=== PATIENT | male | born 1985 | race African-American/Black ===

== ENCOUNTER 2016-03-30 19:07 | Emergency (ER) | payer SELFPAY ==
--- NOTE | 2016-03-30 20:13 | ER Document Report ---
ED Medical Screen (RME) - General Stated Complaint: POSSIBLE INSECT BITE ON RIGHT ARM Notes: patient is a 30 year old male p/w abscess on right antecubital fossa with swelling and head. pt used IV rajesh 2 weeks ago. swelling started 2 days ago, with head today. no fevers but admits to chills. I have greeted and performed a rapid initial assessment of this patient. A comprehensive ED assessment and evaluation of the patient, analysis of test results and completion of the medical decision making process will be conducted by additional ED providers. TRAVEL OUTSIDE OF THE [place] IN LAST 30 DAYS: No - Related Data Allergies/Adverse Reactions: hydrocodone Adverse Reaction (Verified 03/30/16 20:07) Past Medical History Pulmonary Medical History: Reports: Hx Asthma, Hx Pneumonia - Immunizations Immunizations up to date: Yes Hx Diphtheria, Pertussis, Tetanus Vaccination: Yes Physical Exam - Vital signs Vitals: Temp Pulse Resp BP Pulse Ox 98.7 F 93 16 147/90 H 99 03/30/16 19:57 03/30/16 19:57 03/30/16 19:57 03/30/16 19:57 03/30/16 19:57 Course - Vital Signs Vital signs: Temp Pulse Resp BP Pulse Ox 98.7 F 93 16 147/90 H 99 03/30/16 19:57 03/30/16 19:57 03/30/16 19:57 03/30/16 19:57 03/30/16 19:57
[2016-03-30] MEDS ORDERED: OXYCODONE-ACETAMINOPHEN 5-325 MG TABLET PO ONE ×2 (20:14→23:19)
[2016-03-30] MEDS ORDERED: LIDOCAINE 1% INJ-PF (10 MG/ML) 30 ML SDV ONE (23:04)
[2016-03-30] MEDS ORDERED: CEPHALEXIN 500 MG CAPSULE PO ONE (23:19)
[2016-03-30] MEDS ORDERED: SULFAMETHOXAZOLE/TRIMETHOPRIM 800-160 MG TABLET PO ONE (23:19)
--- NOTE | 2016-03-30 23:23 | ER Document Report ---
ED General - General Chief Complaint: Abscess Stated Complaint: ABSCESS Notes: Patient is a 30-year-old male who presents with 2 days of progressively worsening redness, swelling and pain of his right upper extremity. States that somebody [facility] him with "[facility]" [facility] a week ago and several days later he began to notice some redness to the area. It has now progressed to a large abscess with associated cellulitis which patient describes as a severely painful , constant, throbbing pain. Nothing improves or worsens the pain. He denies any history of similar symptoms in the past. He denies any constitutional symptoms. He has not spoken with his primary care physician regarding today's concerns. TRAVEL OUTSIDE OF THE [place] IN LAST 30 DAYS: No - Related Data Allergies/Adverse Reactions: hydrocodone Adverse Reaction (Verified 03/30/16 20:07) Past Medical History - General Information source: Patient - Social History Smoking Status: Current Every Day Smoker Chew tobacco use (# tins/day): No Frequency of alcohol use: None Drug Abuse: Other Family History: Reviewed & Not Pertinent Patient has suicidal ideation: No Patient has homicidal ideation: No Pulmonary Medical History: Reports: Hx Asthma, Hx Pneumonia Renal/ Medical History: Denies: Hx Peritoneal Dialysis - Immunizations Immunizations up to date: Yes Hx Diphtheria, Pertussis, Tetanus Vaccination: Yes Review of Systems - Review of Systems Notes: Constitutional: Negative for fever. HENT: Negative for sore throat. Eyes: Negative for visual changes. Cardiovascular: Negative for chest pain. Respiratory: Negative for shortness of breath. Gastrointestinal: Negative for abdominal pain, vomiting or diarrhea. Genitourinary: Negative for dysuria. Musculoskeletal: Negative for back pain. Skin: Positive for an abscess with associated cellulitis Neurological: Negative for headaches, weakness or numbness. 10 point ROS negative except as marked above and in HPI. Physical Exam - Vital signs Vitals: Temp Pulse Resp BP Pulse Ox 98.7 F 93 16 147/90 H 99 03/30/16 19:57 03/30/16 19:57 03/30/16 19:57 03/30/16 19:57 03/30/16 19:57 Interpretation: Hypertensive Notes: PHYSICAL EXAMINATION: GENERAL: Well-appearing, well-nourished and in no acute distress. HEAD: Atraumatic, normocephalic. EYES: Pupils equal round and reactive to light, extraocular movements intact, sclera anicteric, conjunctiva are normal. ENT: nares patent, oropharynx clear without exudates. Moist mucous membranes. NECK: Normal range of motion, supple without lymphadenopathy LUNGS: Breath sounds clear to auscultation bilaterally and equal. No wheezes rales or rhonchi. HEART: Regular rate and rhythm without murmurs ABDOMEN: Soft, nontender, normoactive bowel sounds. No guarding, no rebound. No masses appreciated. EXTREMITIES: Normal range of motion, no pitting or edema. No cyanosis. NEUROLOGICAL: No focal neurological deficits. Moves all extremities spontaneously and on command. PSYCH: Normal mood, normal affect. SKIN: Warm, Dry, normal turgor, there is a 4 x 3 cm abscess on the radial aspect of the an acute fossa with spreading erythema to the mid forearm into the distal one third of the bicep Course - Re-evaluation Re-evalutation: 03/30/16 23:20 Patient presents with a large abscess on the right forearm over the antecubital fossa. Patient has an associated cellulitis extending over the forearm and to the distal one third of the biceps. This was incised and drained with a cruciate incision secondary to the size of the abscess. Approximately 30 mL of purulent drainage was expressed. Patient does not meet sepsis criteria and is overall very well in appearance. He'll be started on both Bactrim and Keflex. At this time will discharge with return precautions and follow-up recommendations. Verbal discharge instructions given a the bedside and opportunity for questions given. Medication warnings reviewed. Patient is in agreement with this plan and has verbalized understanding of return precautions and the need for primary care follow-up in the next 24 hours for a wound recheck. - Vital Signs Vital signs: Temp Pulse Resp BP Pulse Ox 101.1 F H 93 18 146/94 H 99 03/30/16 23:45 03/30/16 23:45 03/30/16 23:45 03/30/16 23:45 03/30/16 23:45 Procedures - Incision and Drainage Right Arm Type: Complex Anesthetic type: 1% Lidocaine mL's of anesthetic: 5 Blade size: 11 I&D procedure: Betadine prep applied Incision Method: Incision made by scalpel Amount/type of drainage: 30 cc purulent drainage Notes: 03/31/16 02:47 This was a complex incision and drainage requiring bedside ultrasound assistance with extensions of the incision into a full cruciate incision secondary to the degree of purulent expression in the size of the abscess. The abscess was irrigated after extensive probing to break up loculations. An additional ultrasound was completed immediately after no further purulent material was able to be expressed did not demonstrate any remaining fluid collections. The abscess was then irrigated with fluid and then packed with iodoform gauze. Full procedure time: 30 minutes. Discharge - Discharge Clinical Impression: Abscess of right forearm, Cellulitis of arm, right Condition: Good Disposition: HOME, SELF-CARE Additional Instructions: You were seen for an abscess that required drainage. Please clean this area with soap and water twice daily and apply a topical antibiotic. Dress the area after each cleaning. You need to take the antibiotics as prescribed. Do not stop even if the rash goes away until you have completed all the antibiotics. The area of redness was traced out here in the emergency department with a marking pen. You need to return to emergency department if the redness spreads outside of this area by more than 2 cm in any direction. You should also return if you develop fevers with temperature greater than 101, persistent vomiting, worsening pain, or have any other symptoms that are concerning to you. Please return to the emergency department and urgent care or your primary care doctor in the next 24-48 hours for recheck of your wound and removal of packing Prescriptions: Cephalexin Monohydrate [Keflex 500 mg Capsule] 500 mg PO QID #28 capsule Oxycodone HCl/Acetaminophen [Percocet 5-325 mg Tablet] 1 - 2 tab PO Q4H PRN #12 tablet PRN Reason: Sulfamethoxazole/Trimethoprim [Bactrim Ds Tablet] 2 tab PO BID #28 tablet
[2016-03-31] VITALS: BP 146/94
== END 2016-03-30 23:45 | disposition home or self-care (01) ==
LOC: ER 19:07
PROC: 0H9DXZZ Drainage of Right Lower Arm Skin, External Approach (ICD-10-PCS; principal; 2016-03-30)
DX: L02.413 Cutaneous abscess of right upper limb (principal); L03.113 Cellulitis of right upper limb; J45.909 Unspecified asthma, uncomplicated; F17.200 Nicotine dependence, unspecified, uncomplicated
CPT/HCPCS: 99283; 10061; J3490

== ENCOUNTER 2016-05-09 23:34 | Emergency (ER) | payer SELFPAY ==
[2016-05-10] MEDS ORDERED: IPRATROPIUM/ALBUTEROL 0.5-2.5 MG/3 ML AMPUL NEB ONE (03:53)
[2016-05-10] MEDS ORDERED: PREDNISONE 20 MG TABLET PO ONE (07:00)
[2016-05-10] MEDS ORDERED: ALBUTEROL SULFATE HFA (90 MCG/PUFF) 8 GM MDI (1 MDI/ER DISP) IH ONE (07:00)
--- NOTE | 2016-05-10 07:00 | ER Document Report ---
ED Respiratory Problem - General Mode of Arrival: Ambulatory Information source: Patient TRAVEL OUTSIDE OF THE [place] IN LAST 30 DAYS: No - HPI Patient complains to provider of: Asthma Onset: Last week Duration: Worse/persistent Context: Hx asthma, Smoker - 1/2 pack per day Cough: Productive Sputum amount: Moderate Sputum color: Brown Sputum consistency: Thick At home treatment: Bronchodilators - Inhaler recently ran out Associated symptoms: Chest pain/discomfort - Secondary to cough, Cough, Wheezing Similar symptoms previously: Yes - history of asthma <MARLENA CUI - Last Filed: 05/10/16 07:23> <ALBAN JOEL - Last Filed: 05/10/16 07:47> - General Chief Complaint: Breathing Difficulty Stated Complaint: CHEST PAIN, DIFFICULTY BREATHING Notes: Patient is a 30-year-old male, with history of asthma and smoking, presenting to the emergency department concerned of difficulty breathing with wheezing onset approximately 1-1/2 weeks ago. Patient states that he has had a cough with very dark sputum. Patient used to have an inhaler of albuterol, but has now run out. 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 (MARLENA CUI) - Related Data Allergies/Adverse Reactions: hydrocodone Adverse Reaction (Verified 05/10/16 02:11) Past Medical History - General Information source: Patient - Social History Smoking Status: Current Every Day Smoker Cigarette use (# per day): Yes - 10 Frequency of alcohol use: Rare Drug Abuse: None Family History: Reviewed & Not Pertinent Patient has suicidal ideation: No Patient has homicidal ideation: No Pulmonary Medical History: Reports: Hx Asthma, Hx Pneumonia Renal/ Medical History: Denies: Hx Peritoneal Dialysis - Immunizations Immunizations up to date: Yes Hx Diphtheria, Pertussis, Tetanus Vaccination: Yes <MARLENA CUI - Last Filed: 05/10/16 07:23> Review of Systems - Review of Systems Constitutional: No symptoms reported EENT: No symptoms reported Cardiovascular: No symptoms reported Respiratory: See HPI, Cough, Short of breath, Sputum, Wheezing Gastrointestinal: No symptoms reported Genitourinary: No symptoms reported Male Genitourinary: No symptoms reported Musculoskeletal: No symptoms reported Skin: No symptoms reported Hematologic/Lymphatic: No symptoms reported Neurological/Psychological: No symptoms reported -: Yes All other systems reviewed and negative <MARLENA CUI - Last Filed: 05/10/16 07:23> Physical Exam - General General appearance: Appears well, Alert - HEENT Head: Normocephalic, Atraumatic Eyes: Normal Pupils: PERRL - Respiratory Respiratory status: No respiratory distress Chest status: Nontender Breath sounds: Productive cough, Rhonchi - With cough, Wheezing - Inspiratory and expiratory Chest palpation: Normal - Cardiovascular Rhythm: Regular Heart sounds: Normal auscultation Murmur: No - Abdominal Inspection: Normal Tenderness: Nontender - Back Back: Normal, Nontender - Extremities General upper extremity: Normal inspection, Nontender General lower extremity: Normal inspection, Nontender, Normal weight bearing - Neurological Neuro grossly intact: Yes Cognition: Normal Dennys Coma Scale Eye Opening: Spontaneous Dennys Coma Scale Verbal: Oriented Dennys Coma Scale Motor: Obeys Commands Henderson Coma Scale Total: 15 Speech: Normal - Psychological Associated symptoms: Normal affect, Normal mood - Skin Skin Temperature: Warm Skin Moisture: Dry Skin Color: Normal <MARLENA CUI - Last Filed: 05/10/16 07:23> Course - EKG Interpretation by Nh EKG shows normal: Sinus rhythm, [place], Intervals, QRS Complexes, ST-T Waves Rate: Tachycardia - 103 P Waves: LAE <ALBAN JOEL - Last Filed: 05/10/16 07:47> - Vital Signs Vital signs: Temp Pulse Resp BP Pulse Ox 98.8 F 91 16 126/73 H 92 05/10/16 07:13 05/10/16 07:13 05/10/16 07:13 05/10/16 07:13 05/10/16 07:13 Discharge <MARLENA CUI - Last Filed: 05/10/16 07:23> <ALBAN JOEL - Last Filed: 05/10/16 07:47> - Discharge Clinical Impression: Asthmatic bronchitis Qualifiers: Asthma severity: unspecified severity Asthma complication type: with acute exacerbation Qualified Code(s): J45.901 - Unspecified asthma with (acute) exacerbation Condition: Stable Disposition: HOME, SELF-CARE Additional Instructions: Bronchitis with Bronchospasm (Wheezing): You have bronchitis with bronchospasm (wheezing). Sometimes people develop wheezing with a chest cold. This occurs either because of an underlying tendency toward asthma or because the virus itself irritates the bronchial tubes. This irritation causes cough, shortness of breath, and wheezing. Emergency treatment of bronchospasm may include adrenaline shots or bronchodilator aerosol. You may feel lightheaded and have a rapid pulse for an hour or two. Rest and get plenty of fluids. At home, we'll treat you with a bronchodilator inhaler. Corticosteroids may be required for some patients. Until you recover, avoid chemical fumes, dusts, pollens, and exercising in very cold or dry air. If you smoke, stop now! Most cases of bronchitis get better without antibiotics. We prescribe antibiotics when we believe bacteria are damaging your airways, or if there's high risk the bronchitis will worsen into pneumonia. Increase your fluid intake. A cool mist humidifier may make your lungs more comfortable. An expectorant (cough medicine that loosens phlegm) can help. Repeated episodes of bronchitis and bronchospasm may result in lung damage -- for example, chronic bronchitis, recurrent pneumonias, or emphysema. If you develop a fever, increased wheezing, chest pain, or severe shortness of breath, you should contact the doctor immediately. START THE PREDNISONE AND THE ZITHROMAX TOMORROW. USE THE INHALER 2 PUFFS EVERY 4 HOURS FOR WHEEZING. DRINK PLENTY OF FLUIDS. REST. STOP SMOKING. FOLLOW UP WITH A LOCAL MEDICAL DOCTOR IF NOT IMPROVING. Prescriptions: Albuterol Sulfate [Proair HFA] 1 - 2 puff IH Q4 PRN #1 inhaler PRN Reason: Azithromycin [Zithromax 250 mg Tablet] 250 mg PO DAILY #4 tablet Prednisone [Deltasone 10 mg Tablet] 10 mg PO ASDIR PRN #21 tablet PRN Reason: Scribe Attestation: 05/10/16 07:04 I personally performed the services described in the documentation, reviewed and edited the documentation which was dictated to the scribe in my presence, and it accurately records my words and actions. (ALBAN JOEL) Scribe Documentation - Scribe Written by Celestino:: Marlena Cui 05/10/2016 0721 acting as scribe for :: Bret <MARLENA CUI - Last Filed: 05/10/16 07:23>
[2016-05-10] MEDS ORDERED: AZITHROMYCIN 250 MG TABLET PO ONE (07:02)
[2016-05-10 07:16] VITALS: BP 126/73
--- NOTE | 2016-05-10 08:10 | EKG REPORT ---
SEVERITY:- BORDERLINE ECG - SINUS TACHYCARDIA PROBABLE LEFT ATRIAL ABNORMALITY : Confirmed by: Goyo Christopher MD 10-May-2016 08:08:43
== END 2016-05-10 07:18 | disposition home or self-care (01) ==
LOC: ER 23:34
DX: J45.901 Unspecified asthma with (acute) exacerbation (principal); R05 Cough; R07.9 Chest pain, unspecified; R06.02 Shortness of breath; R00.0 Tachycardia, unspecified; F17.210 Nicotine dependence, cigarettes, uncomplicated; Z87.01 Personal history of pneumonia (recurrent)
CPT/HCPCS: 93005; 94640; 99285; 71020; 93010; J7512; J3490; J7620

== ENCOUNTER 2016-08-01 21:18 | Emergency (ER) | payer SELFPAY ==
[2016-08-01 21:25] VITALS: BP 141/86
[2016-08-01] MEDS ORDERED: OXYCODONE-ACETAMINOPHEN 5-325 MG TABLET PO ONE (23:34)
[2016-08-01] MEDS ORDERED: CLINDAMYCIN HCL 150 MG CAPSULE PO ONE (23:34)
[2016-08-01] MEDS ORDERED: LIDOCAINE 1% INJ-PF (10 MG/ML) 30 ML SDV INJ ONE (23:34)
--- NOTE | 2016-08-01 23:38 | ER Document Report ---
ED General - General Chief Complaint: Insect Bite Stated Complaint: POSSIBLE INSECT BITE RIGHT ARM Time Seen by Provider: 08/01/16 22:47 Notes: Patient is a 30-year-old male presents with complaint of a abscess to the right antecubital area. He says he is bitten by something such as a bug or spider 3 days ago he did not see what might have bit him. He has no fevers. Denies IV drug abuse. No other complaints at this time. TRAVEL OUTSIDE OF THE [place] IN LAST 30 DAYS: No - Related Data Allergies/Adverse Reactions: hydrocodone Adverse Reaction (Verified 05/10/16 02:11) Past Medical History - Social History Smoking Status: Unknown if Ever Smoked Frequency of alcohol use: None Drug Abuse: None Family History: Reviewed & Not Pertinent Patient has suicidal ideation: No Patient has homicidal ideation: No Pulmonary Medical History: Reports: Hx Asthma, Hx Pneumonia Renal/ Medical History: Denies: Hx Peritoneal Dialysis Surgical Hx: Negative - Immunizations Immunizations up to date: Yes Hx Diphtheria, Pertussis, Tetanus Vaccination: Yes Review of Systems - Review of Systems Notes: My Normal Review Basic REVIEW OF SYSTEMS: CONSTITUTIONAL : Denies fever, chills, or sweats. Denies recent illness. MUSCULOSKELETAL: Denies neck or back pain or joint pain or swelling. SKIN: Abscess Right antecubital area. ALL OTHER SYSTEMS REVIEWED AND NEGATIVE. Physical Exam - Vital signs Vitals: Temp Pulse Resp BP Pulse Ox 98.4 F 72 20 141/86 H 99 08/01/16 21:24 08/01/16 21:24 08/01/16 21:24 08/01/16 21:24 08/01/16 21:24 - Notes Notes: General Appearance: Well nourished, alert, cooperative, no acute distress, no obvious discomfort. Vitals: reviewed, See vital signs table. Eyes: PERRL, EOMI, Conjuctiva clear Mouth: No decreasd moisture Lungs: No wheezing, No rales, No rhonci, No accessory muscle use, good air exchange bilaterally. Heart: Normal rate, Regular rythm, No murmur, no rub Abdomen: Normal BS, soft, No rigidity, No abdominal tenderness, No guarding, no rebound, no abdominal masses, no organomegaly Extremities: strength 5/5 in all extremities, good pulses in all extremities, 2 cm area of fluctuance in the right antecubital area. Localized erythema., no edema. Skin: warm, dry, appropriate color, no rash Neuro: speech clear, oriented x 3, normal affect, responds appropriately to questions. Course - Vital Signs Vital signs: Temp Pulse Resp BP Pulse Ox 98.4 F 72 20 141/86 H 99 08/01/16 21:24 08/01/16 21:24 08/01/16 21:24 08/01/16 21:24 08/01/16 21:24 - Transfer of Care Notes: 08/02/16 01:40 To the patient's room to incise the small abscess. Patient was not there. Nursing staff informed me that he got in an argument with his girlfriend and then left. I went back several times over the course of the next 30 minutes and he still was not there. Patient never returned and apparently has eloped after the argument with his girlfriend. Dictation of this chart was performed using voice recognition software; therefore, there may be some unintended grammatical errors.
== END 2016-08-02 01:00 | disposition left against medical advice (07) ==
LOC: ER 21:18
DX: L02.413 Cutaneous abscess of right upper limb (principal); S40.861A Insect bite (nonvenomous) of right upper arm, initial encounter; W57.XXXA Bitten or stung by nonvenomous insect and other nonvenomous arthropods, initial encounter
CPT/HCPCS: 99281; J3490

== ENCOUNTER 2016-08-02 04:17 | Emergency (ER) | payer SELFPAY ==
[2016-08-02] MEDS ORDERED: LIDOCAINE 1% INJ-PF (10 MG/ML) 30 ML SDV INJ ONE (04:51)
--- NOTE | 2016-08-02 04:57 | ER Document Report ---
ED General - General Chief Complaint: Insect Bite Stated Complaint: POSSIBLE INSECT BITE Time Seen by Provider: 08/02/16 04:49 Notes: Is a 30-year-old male that fell earlier today. He has an abscess in the right antecubital area. Patient eloped before I could incise abscess. Patient is now back. His abscesses little bit larger in size. Patient will be early because his girlfriend came to his room and started yelling and screaming and he wants to get her out of the ER because of the disturbance she was making. Patient has no history of IV drug abuse. He has no track coughlin on his arms. He has no recent fevers. No other complaints at this time. Patient did receive clindamycin when he was here a few hours ago. TRAVEL OUTSIDE OF THE [place] IN LAST 30 DAYS: No - Related Data Allergies/Adverse Reactions: hydrocodone Adverse Reaction (Verified 05/10/16 02:11) Past Medical History - Social History Smoking Status: Never Smoker Frequency of alcohol use: None Drug Abuse: None Family History: Reviewed & Not Pertinent Patient has suicidal ideation: No Patient has homicidal ideation: No Pulmonary Medical History: Reports: Hx Asthma, Hx Pneumonia Renal/ Medical History: Denies: Hx Peritoneal Dialysis - Immunizations Immunizations up to date: Yes Hx Diphtheria, Pertussis, Tetanus Vaccination: Yes Review of Systems - Review of Systems Notes: My Normal Review Basic REVIEW OF SYSTEMS: CONSTITUTIONAL : Denies fever, chills, or sweats. Denies recent illness. MUSCULOSKELETAL: Abscess to right antecubital area. SKIN: Denies rash or skin lesions. NEUROLOGICAL: Denies altered mental status. ALL OTHER SYSTEMS REVIEWED AND NEGATIVE. Physical Exam - Vital signs Vitals: Temp Pulse Resp BP Pulse Ox 98.0 F 93 16 143/91 H 96 08/02/16 04:22 08/02/16 04:22 08/02/16 04:22 08/02/16 04:22 08/02/16 04:22 - Notes Notes: General Appearance: Well nourished, alert, cooperative, no acute distress, mild obvious discomfort. well appearing Vitals: reviewed, See vital signs table. Extremities: strength 5/5 in all extremities, good pulses in all extremities, 3cm area of fluctuance in right antecubital fossa with localized erythema., no edema. Skin: warm, dry, appropriate color, no rash Neuro: speech clear, oriented x 3, normal affect, responds appropriately to questions. Course - Vital Signs Vital signs: Temp Pulse Resp BP Pulse Ox 98.0 F 93 16 143/91 H 96 08/02/16 04:22 08/02/16 04:22 08/02/16 04:22 08/02/16 04:22 08/02/16 04:22 - Transfer of Care Notes: 08/02/16 05:33 The abscess was incised and drained. Patient tolerated procedure well. Patient will be placed on clindamycin. He is encouraged to return to the ER immediately if he has spreading of redness, swelling, fevers, or if he feels unwell. Patient agrees with plan and will be discharged home. Procedures - Incision and Drainage right antecubital area Type: Simple Blade size: 11 I&D procedure: Chlorprep applied Incision Method: Incision made by scalpel Amount/type of drainage: 3mls of purulent drainage Discharge - Discharge Clinical Impression: Abscess Condition: Good Disposition: HOME, SELF-CARE Additional Instructions: ABSCESS: You have an abscess (boil). This a pus-forming infection, usually due to staph. Some boils may be left to drain on their own, but most require lancing. From the time the tender lump first appears, it may be three or four days before the abscess is ready to sherin. Local heat and rest help at this stage of treatment. An antibiotic may prevent spread of the infection. Once the abscess is opened, packing may be placed into it. This is done so pus is not sealed inside by premature closure of the cavity. The packing will be removed at your follow-up visit or you may be advised to remove it yourself at home. Sometimes this packing must be replaced a few times during healing. The wound will heal with surprisingly little scar. Depending on the size and location of an abscess, healing can take one to four weeks. You may shower and wash the area around the incision site two or three times a day. Antibiotics may be prescribed, but are usually not necessary after an abscess has been drained. If you develop fever, chills, worsening pain, or increasing swelling in the area, call the doctor or return immediately. POST INCISION AND DRAINAGE: You have had an incision made to allow drainage of an abscess. The incision must remain open so that pus and debris can drain from the wound. If the abscess cavity is large, packing is placed. This keeps the tissues from collapsing and trapping pus inside, while the body shrinks the cavity. The packing may need to be replaced every day or two. The physician will instruct you on the packing. Keep a bulky dressing over the area. Replace it if it becomes saturated with blood or pus. Do not disturb the packing (if present). You may shower and cleanse the area with gentle soap and warm water two or three times a day. Local warmth may be soothing, and may promote faster healing. Return if you develop high fever or chills, or if you note spreading redness, increasing swelling, or increasing tenderness. ORAL NARCOTIC MEDICATION: You have been given a prescription for pain control. This medication is a narcotic. It's best taken with food, as nausea can result if taken on an empty stomach. Don't operate machinery or drive within six hours of taking this medication. Do not combine this medicine with alcohol, or with any medication which can cause sedation (such as cold tablets or sleeping pills) unless you get permission from the physician. Narcotics tend to cause constipation. If possible, drink plenty of fluids and eat a diet high in fiber and fruits. FOLLOW-UP CARE: Most simple abscesses will not require a follow up visit. If you had packing placed in the abscess, remove it as instructed by the physician. If you have been referred to a physician for follow-up care, call the physicians office for an appointment as you were instructed or within the next two days. If you experience worsening or a significant change in your symptoms, return to the Emergency Department at any time for re-evaluation. Please return to main campus medical center ER imemdiately if you develop fevers, increased swelling, spreading redness, or feel that the abscess is returning. Prescriptions: Clindamycin HCl 300 mg PO ASDIR #56 capsule Oxycodone HCl/Acetaminophen [Percocet 5-325 mg Tablet] 1 tab PO Q4H PRN #6 tablet PRN Reason: Forms: Return to Work
[2016-08-02] MEDS ORDERED: OXYCODONE-ACETAMINOPHEN 5-325 MG TABLET PO ONE (05:31)
[2016-08-02 06:33] VITALS: BP 144/98
== END 2016-08-02 06:29 | disposition home or self-care (01) ==
LOC: ER 04:17
PROC: 0H9DXZZ Drainage of Right Lower Arm Skin, External Approach (ICD-10-PCS; principal; 2016-08-02)
DX: L02.413 Cutaneous abscess of right upper limb (principal); J45.909 Unspecified asthma, uncomplicated
CPT/HCPCS: 10060; 99283; J3490

== ENCOUNTER 2016-08-21 09:25 | Emergency (ER) | payer SELFPAY | END 2016-08-21 09:29 | disposition left against medical advice (07) | LOC: ER 09:25 | DX: Z53.21 Procedure and treatment not carried out due to patient leaving prior to being seen by health care provider (principal) ==

== ENCOUNTER 2016-10-03 18:49 | Emergency (ER) | payer SELFPAY ==
--- NOTE | 2016-10-03 19:51 | ER Document Report ---
ED Medical Screen (RME) - General Chief Complaint: Abscess Stated Complaint: ABSCESS/RIGHT ARM Time Seen by Provider: 10/03/16 19:42 Mode of Arrival: Ambulatory Information source: Patient Notes: 31-year-old male presents to ED for abscess to right forearm for the last 4-7 days. He states he is not exactly sure how long it has been there. He states there was no drainage at home until it popped today. There is minimal drainage with purulent drainage on his shirt. He has swelling from mid upper arm to his wrist with redness and warmth to the area. I have greeted and performed a rapid initial assessment of this patient. A comprehensive ED assessment and evaluation of the patient, analysis of test results and completion of medical decision making process will be conducted by an additional ED providers. TRAVEL OUTSIDE OF THE [place] IN LAST 30 DAYS: No - Related Data Allergies/Adverse Reactions: hydrocodone Adverse Reaction (Verified 10/03/16 18:56) Past Medical History Pulmonary Medical History: Reports: Hx Asthma, Hx Pneumonia Renal/ Medical History: Denies: Hx Peritoneal Dialysis - Immunizations Immunizations up to date: Yes Hx Diphtheria, Pertussis, Tetanus Vaccination: Yes Physical Exam - Vital signs Vitals: Temp Pulse Resp BP Pulse Ox 98.3 F 91 16 140/80 H 95 10/03/16 18:54 10/03/16 18:54 10/03/16 18:54 10/03/16 18:54 10/03/16 18:54 Course - Vital Signs Vital signs: Temp Pulse Resp BP Pulse Ox 98.3 F 85 18 135/83 H 97 10/03/16 19:49 10/03/16 19:49 10/03/16 19:49 10/03/16 19:49 10/03/16 19:49
[2016-10-03] MEDS ORDERED: SULFAMETHOXAZOLE/TRIMETHOPRIM 800-160 MG TABLET PO ONE (19:59)
[2016-10-03] MEDS ORDERED: LIDOCAINE 1% INJ-PF (10 MG/ML) 30 ML SDV INJ ONE ×2 (19:59→20:01)
[2016-10-03] MEDS ORDERED: CEFTRIAXONE INJ 1000 MG VIAL IM ONE (19:59)
--- NOTE | 2016-10-03 20:01 | ER Document Report ---
ED Skin Rash/Insect Bite/Abscs - General Chief Complaint: Abscess Stated Complaint: ABSCESS/RIGHT ARM Time Seen by Provider: 10/03/16 19:42 Mode of Arrival: Ambulatory TRAVEL OUTSIDE OF THE [place] IN LAST 30 DAYS: No - HPI Patient complains to provider of: Tender/swollen area - 5 days, has been increasing in size over the past 4 days now with drainage, redness and tenderness Onset/Duration: Gradual Quality of pain: Pressure Skin Character: Abscess Skin Temperature: Hot Similar symptoms previously: Yes - approx two months ago - Related Data Allergies/Adverse Reactions: hydrocodone Adverse Reaction (Verified 10/03/16 18:56) Past Medical History - General Information source: Patient - Social History Smoking Status: Current Every Day Smoker Chew tobacco use (# tins/day): No Frequency of alcohol use: None Drug Abuse: None Family History: Reviewed & Not Pertinent Pulmonary Medical History: Reports: Hx Asthma, Hx Pneumonia Renal/ Medical History: Denies: Hx Peritoneal Dialysis - Immunizations Immunizations up to date: Yes Hx Diphtheria, Pertussis, Tetanus Vaccination: Yes Review of Systems - Review of Systems Constitutional: No symptoms reported Musculoskeletal: No symptoms reported Skin: See HPI -: Yes All other systems reviewed and negative Physical Exam - Vital signs Vitals: Temp Pulse Resp BP Pulse Ox 98.3 F 91 16 140/80 H 95 10/03/16 18:54 10/03/16 18:54 10/03/16 18:54 10/03/16 18:54 10/03/16 18:54 - General General appearance: Appears well, Alert In distress: None - Extremities Arm: Normal, Nontender Forearm: Other - abscess Wrist: Normal, Nontender. 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 No: Weakness Sensory: Normal - Skin Skin irregularity: Abscess - right medial forearm measuring 5cm x 5cm with central draining, sourroung induration and erythema Course - Re-evaluation Re-evalutation: 10/04/16 00:11 Patient is a 31-year-old male who is hemodynamic stable, no acute distress and afebrile. Abscess on the right forearm is localized not extending over the right elbow joint without any associated streaking. Range of motion intact Incision and drainage done at the bedside for approximately 10 cc of purulent material.. Patient agrees with plan. Packing placed within the wound and patient to follow-up in 3 days. Borders of the induration were marked using a skin marker. Patient discharged on Bactrim and Keflex - Vital Signs Vital signs: Temp Pulse Resp BP Pulse Ox 98.3 F 66 16 120/74 97 10/03/16 22:30 10/03/16 22:30 10/03/16 22:30 10/03/16 22:30 10/03/16 22:30 - Laboratory Result Diagrams: 10/03/16 20:13 10/03/16 20:13 Laboratory results interpreted by me: 10/03/16 20:13 RBC 4.27 L Procedures - Incision and Drainage Right Medial Arm Type: Simple Anesthetic type: 1% Lidocaine mL's of anesthetic: 5 Blade size: 11 I&D procedure: Betadine prep applied Incision Method: Incision made by scalpel Amount/type of drainage: 10 Discharge - Discharge Clinical Impression: Abscess Condition: Good Disposition: HOME, SELF-CARE Instructions: Abscess ([facility]), Cephalexin ([facility]), Use of Akff-Pfi-Thzhnrh Ibuprofen ([facility]), MRSA Cellulitis ([facility]), Oral Narcotic Medication ([facility]), Post Incision and Drainage, Trimethoprim-Sulfa ([facility]) Additional Instructions: Please return in 3 days for a wound check Prescriptions: Cephalexin Monohydrate [Keflex 500 mg Capsule] 500 mg PO QID #28 capsule Oxycodone HCl/Acetaminophen [Percocet 5-325 mg Tablet] 1 - 2 tab PO Q4H PRN #10 tablet PRN Reason: Sulfamethoxazole/Trimethoprim [Bactrim Ds Tablet] 2 each PO BID #28 tablet Forms: Return to Work
[2016-10-03] MEDS ORDERED: ONDANSETRON 4 MG TAB.RAPDIS PO ONE (20:23)
[2016-10-03] MEDS ORDERED: OXYCODONE-ACETAMINOPHEN 5-325 MG TABLET PO ONE (20:23)
[2016-10-03 20:29] LABS: ABSOLUTE BASOPHILS # (AUTO) 0.1 10^3/uL (0.0-0.2); ABSOLUTE EOSINOPHILS # (AUTO) 0.2 10^3/uL (0.0-0.6); ABSOLUTE LYMPHOCYTES (AUTO) 2.2 10^3/uL (0.5-4.7); ABSOLUTE MONOCYTES (AUTO) 0.9 10^3/uL (0.1-1.4); ABSOLUTE NEUT (AUTO) 5.5 10^3/uL (1.7-8.2); BASOPHILS % (AUTO) 1.1 % (0-2); HEMATOCRIT 40.6 % (37.9-51.0); HEMOGLOBIN 13.9 g/dL (13.5-17.0); HGB HCT DIFFERENCE 1.1; MEAN CORPUSCULAR HEMOGLOBIN 32.4 pg (27.0-33.4); MEAN CORPUSCULAR HGB CONC 34.1 g/dL (32.0-36.0); MEAN CORPUSCULAR VOLUME 95 fl (80-97); MONOCYTES % (AUTO) 10.2 % (3-13); RED BLOOD COUNT 4.27 10^6/uL (4.35-5.55); RED CELL DISTRIBUTION WIDTH 11.5 % (11.5-14.0); SEGMENTED NEUTROPHILS % (AUTO) 61.7 % (42-78)
[2016-10-03 20:52] LABS: ALANINE AMINOTRANSFERASE 27 U/L (21-72); ALBUMIN 3.7 g/dL (3.5-5.0); ALKALINE PHOSPHATASE 82 U/L (38-126); ANION GAP 10 (5-19); ASPARTATE AMINO TRANSFERASE 18 U/L (17-59); BILIRUBIN,DIRECT 0.3 mg/dL (0.0-0.4); BILIRUBIN,TOTAL 0.7 mg/dL (0.2-1.3); BLOOD UREA NITROGEN 9 mg/dL (7-20); CALCIUM 9.6 mg/dL (8.4-10.2); CARBON DIOXIDE 28 mmol/L (22-30); CHLORIDE 101 mmol/L (98-107); CREATININE RESULT 1.06 mg/dL (0.52-1.25); GLUCOSE 104 mg/dL (75-110); POTASSIUM 4.7 mmol/L (3.6-5.0); SODIUM 138.9 mmol/L (137-145); TOTAL PROTEIN 6.8 g/dL (6.3-8.2)
[2016-10-03 22:35] VITALS: BP 120/74
== END 2016-10-03 22:30 | disposition home or self-care (01) ==
LOC: ER 18:49
PROC: 0H9DXZZ Drainage of Right Lower Arm Skin, External Approach (ICD-10-PCS; principal; 2016-10-03)
DX: L02.413 Cutaneous abscess of right upper limb (principal); F17.200 Nicotine dependence, unspecified, uncomplicated; J45.909 Unspecified asthma, uncomplicated
CPT/HCPCS: 99283; 96372; 36415; 87040; 87070; 87205; 85025; 87075; 87077; 80053; 87186; 10060; A6266; S0119; J3490; J0696